=== PATIENT | female | born 2000 | race Caucasian/White ===

== ENCOUNTER 2023-11-14 10:36 | Outpatient (AMB) | payer SELFPAY ==
--- NOTE | 2023-11-14 10:31 | MHC.OFFWIV ---
Intake Vital Signs 11/14/23 10:40 Height 5 ft 1 in Weight 162 lb BMI 30.6 BP 118/80 Blood Pressure Location Lt brachial Position Sitting Pulse 80 Pulse Source Pulse Oximeter Pulse Oximetry (%) 98 Oxygen Delivery Method Room Air Intake Visit Reasons: [employer] yeast infection Patient Tobacco Use Status: Never used Tobacco Allergies No Known Allergies [No Known Allergies*] Allergy (Verified 11/14/23 10:42) Medication List - Last Reconciled 11/14/23 by Son Gonzalez MD No Known Home Meds Do you need a note to return to daycare/school/sports/work: No HPI [employer] yeast infection HPI Details Patient is 23-year-old female came in today to be evaluated for possible vaginal yeast infection Patient says that she has been having vaginal itching for the past 5 days And also have a yellow vaginal discharge She is sexually active, patient says that she is not There is no abdominal pain there is no nausea vomiting there is no fever there is no pain with sexual intercourse We have taken vaginal cultures On examination patient does have a thick white discharge around vagina I am treating her with Diflucan as we wait for further vaginal culture reports [facility] Social History Patient Tobacco Use Status: Never used Tobacco Review of Systems Const All systems reviewed & are unremarkable except as noted in HPI and below Physical Exam Vital Signs: Last Vital Signs Pulse 80 11/14/23 10:40 BP 118/80 11/14/23 10:40 Pulse Ox 98 11/14/23 10:40 Oxygen Delivery Method Room Air 11/14/23 10:40 BMI result Body Mass Index 30.6 Const General: no acute distress Orientation/consciousness: patient oriented x3 Eyes General: appearance normal, both eyes and all related structures Resp Effort & Inspection: normal respiratory effort and able to speak in complete sentences Auscultation: clear to auscultation bilaterally Cardio Other: S1 S2 Other: Thick white discharge around and in vagina Neuro General: patient oriented x3 Psych Mental Status: mental status grossly normal Assessment & Plan Assessment & Plan (1) Vaginal itching: Code(s): N89.8 - Other specified noninflammatory disorders of vagina (2) Vaginitis: Code(s): N76.0 - Acute vaginitis Qualifiers: Chronicity: acute Qualified Code(s): N76.0 - Acute vaginitis (3) Vaginal discharge: Code(s): N89.8 - Other specified noninflammatory disorders of vagina Plan Patient is 23-year-old female came in today to be evaluated for possible vaginal yeast infection Patient says that she has been having vaginal itching for the past 5 days And also have a yellow vaginal discharge She is sexually active, patient says that she is not There is no abdominal pain there is no nausea vomiting there is no fever there is no pain with sexual intercourse We have taken vaginal cultures On examination patient does have a thick white discharge around vagina I am treating her with Diflucan as we wait for further vaginal culture reports Orders: Orders Bacterial Vaginosis Panel Today N76.0 - Acute vaginitis, N89.8 - Other specified noninflammatory disorders of vagina Medications: New fluconazole may repeat second dose 72 hrs after first dose if symptoms persist 150 mg PO Q3D 2 tabs 0RF 2 doses Coding Level of Care Code New Pt Level 3 (94460) Diagnoses Vaginal itching N89.8 Acute vaginitis N76.0 Chronicity: acute Vaginal discharge N89.8
[2023-11-14 10:40] VITALS: BP 118/80; PULSE 80; O2SAT 98; BMI 30.6
== END 2023-11-14 11:59 | disposition home or self-care (01) ==
PROVIDERS: PCP Pediatrics; Visit Provider Internal Medicine
DX: N89.8 Other specified noninflammatory disorders of vagina (principal); N76.0 Acute vaginitis
CPT/HCPCS: 99203

== ENCOUNTER 2023-11-14 11:17 | Outpatient (REF) | payer SELFPAY ==
[2023-11-15 12:56] LABS: BV Int Neg Control Negative (Negative); BV Int Pos Control Positive (Positive)
== END 2023-11-14 11:18 | disposition home or self-care (01) ==
LOC: HO.LAB 11:17
PROVIDERS: Visit Provider Internal Medicine
DX: N76.0 Acute vaginitis (principal)
CPT/HCPCS: 87480; 87510; 87660